=== PATIENT | male | born 1975 | race Caucasian/White ===

== ENCOUNTER 2020-10-06 14:27 | Emergency (ER) | payer SELFPAY ==
[2020-10-06] MEDS ORDERED: BENADRYL 50 MG/ML IV ONE ×2 (14:31→14:34)
[2020-10-06] MEDS ORDERED: solu-MEDROL IV ONE (14:31)
[2020-10-06] MEDS ORDERED: Pepcid 20 MG VIAL IV ONE (14:31)
[2020-10-06] MEDS ORDERED: Racepinephrine INH Solution 2.25% IH ONE (14:48)
--- NOTE | 2020-10-06 14:48 | XRAY ---
Indication: Short of breath. Allergic reaction to bee sting. Comparison: None Portable chest demonstrates normal heart and lungs. Bony thorax intact with minimal degenerative changes.
[2020-10-06 14:49] LABS: BASOPHIL % 0.6 % (0.0-0.4); Basophil (Absolute #) 0.04 (0-0.4); Eosinophil % 4.1 % (0.00-5.0); Eosinophil (Absolute #) 0.27 (0-0.5); Hematocrit 43.8 % (42-50); Hemoglobin 14.8 gm/dl (12.5-18.0); Lymphocyte (Absolute #) 2.87 (1.0-4.6); Lymphocytes % 43.3 % (24.0-44.0); Mean Corpuscular Hemoglobin 33.1 pg (26-32); Mean Corpuscular Hgb Concent. 33.8 g/dl (32-36); Mean Platelet Volume 9.2 fl (7.5-11.0); Monocyte (Absolute #) 0.65 (0.0-1.3); Monocytes % 9.8 % (0.0-12.0); Neutrophil % 42.2 % (36.0-66.0); Platelet Count 234 K/mm3 (150-450); Red Blood Count 4.47 M/mm3 (4.1-5.6); Red Cell Distribution Width 12.5 % (11.5-14.0); White Blood Count 6.6 K/mm3 (4.0-10.5)
[2020-10-06 14:59] LABS: ALKALINE PHOSPHATASE 74 U/L (38-126); ANION GAP 18.9 MEQ/L (5-15); BLOOD UREA NITROGEN 13 mg/dL (9-20); CHLORIDE 104 mmol/L (98-107); Calcium 9.5 mg/dL (8.4-10.2); Carbon Dioxide 22 mmol/L (22-30); Creatinine 1 0.76 mg/dL (0.66-1.25); EST GLOMERULAR FILTRATION RATE > 60.0 ML/MIN; Glucose 133 mg/dL (74-106); Potassium 3.6 mmol/L (3.5-5.1); SGOT/AST 26 U/L (17-59); SGPT/ALT 11 U/L (0-50); SODIUM 141 mmol/L (137-145); Total Protein 8.4 g/dL (6.3-8.2)
--- NOTE | 2020-10-06 15:44 | ERPHSYRPT ---
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 face flushed, chest clear. 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 He was given EpiPen by a coworker which he is used and started to feel little better but still having significant throat closing sensation/difficulty mouth breathing. Denies any tongue swelling. Patient is tachypneic and mildly tachycardic on presentation with minimal stridors. Timing/Duration: abrupt onset, hours (0.5) Severity: severe Prearrival Treatment: prescription meds Associated Symptoms: facial pain/swelling, sore throat, difficulty swallowing Allergies/Adverse Reactions: Iodine and Iodide Containing Produc Allergy (Verified 10/06/20 14:33) Penicillins Adverse Reaction (Verified 10/06/20 14:33) Immunizations Up to Date: Yes Travel Risk - International Travel Have you traveled outside of the country in past 3 weeks: No - Coronavirus Screening Are you exhibiting any of the following symptoms?: No Close contact with a COVID-19 positive Pt in past 14-21 Days: No - Vaccine Status Have you recieved a Covid-19 vaccination: No 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 - Review of Systems Constitutional: No Symptoms Eyes: No Symptoms Ears, Nose, & Throat: Mouth Swelling, Throat Pain, Throat Swelling Respiratory: Dyspnea, Stridor Cardiac: No Symptoms Abdominal/Gastrointestinal: No Symptoms Genitourinary Symptoms: No Symptoms Musculoskeletal: No Symptoms Skin: No Symptoms Neurological: No Symptoms Psychological: Anxiety Endocrine: No Symptoms Hematologic/Lymphatic: No Symptoms Immunological/Allergic: No Symptoms - Past Medical History Pertinent Past Medical History: Yes Cardiac History: Hypertension - Past Surgical History Past Surgical History: No - Social History Smoking Status: Never smoker Exposure to second hand smoke: No Drug Use: none Patient Lives Alone: Yes - Nursing Vital Signs Nursing Vital Signs: Initial Vital Signs Pulse Rate 114 H 10/06/20 14:34 Respiratory Rate 16 10/06/20 14:34 Blood Pressure 243/123 10/06/20 14:34 O2 Sat by Pulse Oximetry 99 10/06/20 14:34 Pain Scale Pain Intensity 2 - Physical Exam General Appearance: no apparent distress, alert Eye Exam: right eye: other (Diffuse periorbital swelling. Soft warm and mildly tenderness to palpation), left eye: normal inspection, bilateral eye: PERRL, EOMI Ear Exam: bilateral ear: auricle normal, canal normal, TM normal Nasal Exam: normal inspection Throat Exam: moist mucus membranes, pharynx swelling (Diffuse erythema with swollen uvula. Posterior pharynx still visible. 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 tested, normal mood/affect Skin Exam: normal color SpO2 Interpretation: normal SpO2: 96 O2 Delivery: Room Air - Course EKG Interpreted by Me: RATE (110), Sinus Tach, NORMAL AXIS, Non-specific ST Changes, Other (Borderline QT interval) Ordered Tests: Active Orders 24 hr Category Date Time Status EKG-ER Only STAT Care 10/06/20 14:34 Active IV Insertion STAT Care 10/06/20 14:34 Active NPO (ED) STAT Care 10/06/20 14:34 Active CHEST 1 VIEW (PORTABLE) Stat Exams 10/06/20 14:35 Completed CBC W DIFF Stat Lab 10/06/20 14:34 Completed CMP Stat Lab 10/06/20 14:34 Completed TROPONIN Q3H Lab 10/06/20 14:34 Completed TROPONIN Q3H Lab 10/06/20 18:06 Received TROPONIN Q3H Lab 10/06/20 20:45 Ordered TROPONIN Q3H Lab 10/06/20 23:45 Ordered TROPONIN Q3H Lab 10/07/20 02:45 Ordered Respiratory Therapy Assessment DAILY RT 10/06/20 14:49 Active Medication Summary Discontinued Medications Generic Name Dose Route Start Last Admin Trade Name Freq PRN Reason Stop Dose Admin Diphenhydramine HCl 25 mg 10/06/20 14:34 10/06/20 14:53 Benadryl 50 Mg/Ml IV 10/06/20 14:35 Not Given STAT ONE Epinephrine 0.5 ml 10/06/20 14:48 10/06/20 14:38 Racepinephrine Inh Solution 2.25% IH 10/06/20 14:49 0.5 ml STAT ONE Administration Lab/Rad Data: Laboratory Result Diagrams 10/06/20 14:34 10/06/20 14:34 Laboratory Results 10/06/20 10/06/20 10/06/20 Range/Units 14:34 14:34 14:34 WBC 6.6 (4.0-10.5) K/mm3 RBC 4.47 (4.1-5.6) M/mm3 Hgb 14.8 (12.5-18.0) gm/dl Hct 43.8 (42-50) % MCV 98.0 (78-100) fl MCH 33.1 H (26-32) pg MCHC 33.8 (32-36) g/dl RDW 12.5 (11.5-14.0) % Plt Count 234 (150-450) K/mm3 MPV 9.2 (7.5-11.0) fl Gran % 42.2 (36.0-66.0) % Eos # (Auto) 0.27 (0-0.5) Absolute Lymphs (auto) 2.87 (1.0-4.6) Absolute Monos (auto) 0.65 (0.0-1.3) Lymphocytes % 43.3 (24.0-44.0) % Monocytes % 9.8 (0.0-12.0) % Eosinophils % 4.1 (0.00-5.0) % Basophils % 0.6 (0.0-0.4) % Absolute Granulocytes 2.80 (1.4-6.9) Basophils # 0.04 (0-0.4) Sodium 141 (137-145) mmol/L Potassium 3.6 (3.5-5.1) mmol/L Chloride 104 (98-107) mmol/L Carbon Dioxide 22 (22-30) mmol/L Anion Gap 18.9 H (5-15) MEQ/L BUN 13 (9-20) mg/dL Creatinine 0.76 (0.66-1.25) mg/dL Estimated GFR > 60.0 ML/MIN Glucose 133 H (74-106) mg/dL Calcium 9.5 (8.4-10.2) mg/dL Total Bilirubin 0.20 (0.2-1.3) mg/dL AST 26 (17-59) U/L ALT 11 (0-50) U/L Alkaline Phosphatase 74 (38-126) U/L Troponin I < 0.012 (0.000-0.034) ng/mL Serum Total Protein 8.4 H (6.3-8.2) g/dL Albumin 5.0 (3.5-5.0) g/dL - Progress Progress: improved, re-examined Progress Note: 10/06/20 18:17 Patient was tachypneic and tachycardic on presentation with throat closing sensation. He already have EpiPen. He is given racemic epi and a DuoNeb along with Solu-Medrol/Benadryl/Pepcid and his symptoms started to improve. Patient was initially placed on 2 L oxygen which was removed and currently maintaining saturation around 96% on room air. His breathing is also improved. No tongue swelling, no throat closing sensations. Not tachypneic or tachycardic. Patient was initially hypertensive which I believe is secondary to anxiety plus appendectomy and is now improved. Still hypertensive but patient does not take any antihypertensives at home. He is advised to monitor it and outpatient follow-up with primary care. We will continue with prednisone, Benadryl, Pepcid, albuterol to go home. Right eye swelling is also much improved and is able to open his eye very well. He is advised to continue applying intermittent ice. Discussed signs symptoms of worsening needing return to ER which he seems understanding. Patient is observed almost 4 hours with no rebound and is stable for discharge. Counseled pt/family regarding: lab results, diagnosis, need for follow-up, rad results - Departure Departure Disposition: Home Clinical Impression: Uncontrolled hypertension Allergic reaction Qualifiers: Encounter type: initial encounter Qualified Code(s): T78.40XA - Allergy, unspecified, initial encounter Bee sting Qualifiers: Encounter type: initial encounter Injury intent: accidental or unintentional Qualified Code(s): T63.441A - Toxic effect of venom of bees, accidental (unintentional), initial encounter Condition: Stable Critical Care Time: Yes Critical Care Time(excluding separately billable procedures): Critical 75-104 mins Referrals: DOCTOR,NO FAMILY [Primary Care Provider] - KASI WILKINS, [ACTIVE STAFF] - (Call tomorrow for appointment and reevaluation) Instructions: Angioedema (DC), Anaphylaxis (DC), High Blood Pressure in Adults Additional Instructions: Continue with steroids/Benadryl/Pepcid and take albuterol as needed. Follow-up with primary care physician for reevaluation. Use intermittent ice on the right eye and return if has worsening swelling or difficulty opening eye/difficulty movements of eyeball itself. Use EpiPen as needed. Return to ER if again have throat closing sensation, difficulty breathing, swelling tongue/throat/floor of mouth etc. monitor your blood pressure regularly, keep a log and follow-up with primary care physician for reevaluation. Prescriptions: Diphenhydramine HCl 25 mg [Benadryl 25 mg Capsule] 25 mg PO Q4H PRN PRN #20 capsule PRN Reason: Allergies Prednisone 20 mg [Deltasone 20 mg] 60 mg PO DAILY 5 Days #15 tablet Epinephrine [Epipen] 0.3 mg IM DIRECTIONS UNKNOWN 1 Days #0.3 ml Famotidine 20 mg [Pepcid 20 MG] 20 mg PO BID #10 tablet Albuterol 8 gm Mdi Hfa [Ventolin Hfa MDI] 8 gm IH Q4H #2 hfa.aer.ad Lisinopril 20 mg [Zestril 20 MG] 20 mg PO BID 30 Days #60 tablet
[2020-10-06 18:23] VITALS: O2SAT 96
[2020-10-06 18:31] VITALS: BP 172/91; PULSE 73
[2020-10-06] MEDS ORDERED: Zestril 20 MG PO ONE (18:32)
== END 2020-10-06 18:58 | disposition home or self-care (01) ==
LOC: ED 14:27
DX: T78.40XA Allergy, unspecified, initial encounter (principal); T63.441A Toxic effect of venom of bees, accidental (unintentional), initial encounter
CPT/HCPCS: 36000; 36415; 71045; 80053; 84484; 85025; 93005; 94640; 99284; 99291; 99292; J1200; J2930; A9270-GY